=== PATIENT | female | born 1990 | race Caucasian/White ===

== ENCOUNTER 2021-03-07 13:42 | Emergency (ER) | payer OTHER | END 2021-03-07 15:52 | disposition home or self-care (01) | LOC: FER 13:42 | DX: S92.404A Nondisplaced unspecified fracture of right great toe, initial encounter for closed fracture (principal); W20.8XXA Other cause of strike by thrown, projected or falling object, initial encounter; Y92.009 Unspecified place in unspecified non-institutional (private) residence as the place of occurrence of the external cause | CPT/HCPCS: 73660 ==